=== PATIENT | female | born 1980 | race Caucasian/White ===

== ENCOUNTER 2019-05-17 10:10 | Day surgery (SDC) | payer OTHER ==
[2019-05-16 11:12] VITALS: BMI 23.3
--- NOTE | 2019-05-17 11:28 | HP ---
History & Physical Update - History History: No Change - Physical Physical: No Change - Assessment Assessment: No Change - Plan Plan: No Change
[2019-05-17] MEDS ORDERED: PROPOFOL 20 ML ONE ×4 (11:34)
[2019-05-17] MEDS ORDERED: MIDAZOLAM HCL 2 MG/2 ML SINGLE DOSE VIAL ONE (11:35)
[2019-05-17] MEDS ORDERED: SCOPOLAMINE HYDROBROMIDE 1 PATCH PATCH.TD72 ONE (11:41)
[2019-05-17] MEDS ORDERED: DEXAMETHASONE SOD PHOSPHATE 4 MG/1 ML VIAL ONE (11:42)
[2019-05-17] MEDS ORDERED: LIDOCAINE 1%-EPI 1:100,000 30 ML MDV IJ ONE (12:11)
[2019-05-17] MEDS ORDERED: LACTATED RINGERS SOLUTION 1,000 ML IV SCH (12:15)
[2019-05-17] MEDS ORDERED: ONDANSETRON 4 MG/2 ML VIAL IVPUSH PRN (12:15)
[2019-05-17] MEDS ORDERED: oxyCODONE HCL 5 MG TABLET PO PRN (12:15)
[2019-05-17] MEDS ORDERED: LIDOCAINE 1%/EPI 1:100000 (50 ML MULTI DOSE VIAL) NR ONE (12:17)
[2019-05-17] MEDS ORDERED: BACITRACIN 15 GM TUBE TOPICAL OINTMENT TP ONE (12:50)
[2019-05-17 14:23] VITALS: TEMP 97.7
[2019-05-17 14:50] VITALS: BP 113/67; PULSE 73
--- NOTE | 2019-05-17 15:57 | OP ---
DATE OF OPERATION: 05/17/2019 PREOPERATIVE DIAGNOSIS: Extensive vulvar and perianal condylomata. POSTOPERATIVE DIAGNOSIS: Extensive vulvar and perianal condylomata. PROCEDURE: Laser CO2 ablation of vulvar and perianal condylomata. SURGEON: Colleen Schumacher MD ANESTHESIA: Moderate sedation and local. ESTIMATED BLOOD LOSS: None. COMPLICATIONS: None. INDICATIONS: This is a 38-year-old with history of vulvar and perianal condylomata. She had multiple treatments with TCA as well as Aldara, with worsening of condylomata. The patient was counseled regarding surgical management. Risks, benefits, indications, alternatives were discussed with patient. All questions were answered. Informed consent was signed. FINDINGS: Extensive condylomata along the entire vulva, perineum, and perianal area. There were over 200 condylomata. PROCEDURE: The patient was taken to the operating room, placed in the dorsal supine position. Moderate sedation was achieved. She was placed in the dorsal lithotomy position in Walter stirrups and prepped and draped in the normal fashion. Then 5% acetic acid was applied to the entire area to help visualize the condylomata. Approximately 30 mL of 1% lidocaine with epinephrine was injected into the perianal and vulvar area. We began ablation using the laser set to 7 santillan. We increased it to 9 santillan for the remainder of the procedure. We added an additional 10 mL of lidocaine with epinephrine towards the anterior vulva where it appeared more sensitive. There were no lesions around the clitoris, however, or around the urethra, or in the vagina. Extensive laser ablation was performed. Thirty-five minutes of laser time was used. Excellent hemostasis was seen the entire time. At the end of the procedure, we again examined to make sure that we got all the lesions. It appeared that we had satisfactorily ablated all lesions. Bacitracin was placed on the vulva and perianal area. Sponge, instrument counts were correct x2. The patient was awakened and transferred in stable condition to the PACU. Colleen Schumacher M.D. [id number]
== END 2019-05-17 14:58 | disposition home or self-care (01) ==
LOC: JASU-SURG 10:10
PROVIDERS: ATTEND Obstetrics & Gynecology Gynecologic Oncology
PROC: 0H59XZD Destruction of Perineum Skin, Multiple, External Approach (ICD-10-PCS; 2019-05-17)
PROC: 0U5MXZZ Destruction of Vulva, External Approach (ICD-10-PCS; principal; 2019-05-17 12:00)
DX: A63.0 Anogenital (venereal) warts (principal)
CPT/HCPCS: 84703

== ENCOUNTER 2021-09-16 15:52 | Emergency (ER) | payer OTHER ==
[2021-09-16 16:15] VITALS: TEMP 98; BMI 22.4
[2021-09-16] MEDS ORDERED: METOCLOPRAMIDE HCL INJECTION 10 MG/2 ML VIAL IVPUSH ONE (19:05)
[2021-09-16] MEDS ORDERED: SODIUM CHLORIDE 1,000 ML IV STA (19:05)
[2021-09-16] MEDS ORDERED: METOCLOPRAMIDE HCL INJECTION 10 MG/2 ML VIAL ONE (19:26)
[2021-09-16 19:38] LABS: BASO % 0.3 % (0-2.0); HEMATOCRIT 31.4 % (32.4-45.2); HEMOGLOBIN 10.3 GM/dL (10.7-15.3); LYMPH % 10.7 % (8-40); MCH 23.9 pg (25.7-33.7); MCHC 32.7 g/dl (32.0-36.0); MEAN CELL VOLUME 73.1 fl (80-96); MEAN PLT VOLUME 6.7 fl (7.5-11.1); PLATELET COUNT 519 10^3/uL (134-434); RBC 4.29 M/mm3 (3.60-5.2); RDW 17.9 % (11.6-15.6); WHITE BLOOD COUNT 8.5 K/mm3 (4.0-10.0)
[2021-09-16 19:59] LABS: CALCIUM 9.9 mg/dL (8.5-10.1)
[2021-09-16 20:00] LABS: ALBUMIN 3.9 g/dl (3.4-5.0); BLOOD UREA NITROGEN 10.6 mg/dL (7-18)
[2021-09-16 20:03] LABS: CREATININE 0.7 mg/dL (0.55-1.3)
[2021-09-16 20:04] LABS: BILIRUBIN,TOTAL 0.4 mg/dL (0.2-1); TOT PROT 8.3 g/dl (6.4-8.2)
[2021-09-16 21:43] LABS: EPI CELLS 26 /uL (0-25.1); HYALINE CASTS 42 /uL (0-3.1); PH,URINE 5.5 (5.0-8.0); URINE APPEARANCE CLOUDY; URINE BACTERIA >9,000 /uL (0-1359); URINE BILIRUBIN NEGATIVE (NEGATIVE); URINE COLOR YELLOW; URINE GLUCOSE (UA) NEGATIVE (NEGATIVE); URINE KETONE 4+ (NEGATIVE); URINE LEUK ESTERASE 1+ (NEGATIVE); URINE NITRITE POSITIVE (NEGATIVE); URINE PROTEIN 1+ (NEGATIVE); URINE RBC 8 /uL (0-23.9); URINE UROBILINOGEN 0.2 mg/dL (0.2-1.0); URINE WBC 487 /uL (0-25.8)
[2021-09-16 22:14] VITALS: BP 127/89; PULSE 86
== END 2021-09-16 22:14 | disposition home or self-care (01) ==
LOC: JER 15:52
PROC: 3E033NZ Introduction of Analgesics, Hypnotics, Sedatives into Peripheral Vein, Percutaneous Approach (ICD-10-PCS; principal; 2021-09-16)
PROC: 3E0337Z Introduction of Electrolytic and Water Balance Substance into Peripheral Vein, Percutaneous Approach (ICD-10-PCS; 2021-09-16)
DX: R11.2 Nausea with vomiting, unspecified (principal); N30.00 Acute cystitis without hematuria
CPT/HCPCS: 36415; 80053; 81003; 83690; 84703; 85025; 87086; 93005; 93010; 99284-25